=== PATIENT | female | born 1960 | race Two or more races ===

== ENCOUNTER 2019-08-10 23:15 | Emergency (ER) | payer OTHER ==
[~2019-08-10] VITALS: Ht 154.9 cm; Wt 72.6 kg
[2019-08-11 00:16] LABS: Urine Bacteria NONE SEEN /hpf (None Seen); Urine Blood 3+ /uL (Negative); Urine Specific Gravity 1.018 (1.001-1.035); Urine WBC 218 /hpf (0 - 5)
[2019-08-11] MEDS ORDERED: PHENAZOPYRIDINE HCL 100 MG TAB PO ONE (02:45)
[2019-08-11] MEDS ORDERED: SULFAMETHOX W/TRIMETH(800/160MG) DS TAB PO ONE (02:45)
[2019-08-11 02:46] VITALS: BP 121/85
== END 2019-08-11 02:48 | disposition home or self-care (01) ==
LOC: ER 23:18
DX: N30.90 Cystitis, unspecified without hematuria (principal); R42 Dizziness and giddiness; E78.5 Hyperlipidemia, unspecified; I10 Essential (primary) hypertension; Z88.0 Allergy status to penicillin; Z88.1 Allergy status to other antibiotic agents
CPT/HCPCS: 74176; 81001